=== PATIENT | male | born 1960 | race Caucasian/White ===

== ENCOUNTER 2021-12-16 12:47 | Outpatient (CLI) | payer BC, SELFPAY | END 2021-12-16 12:48 | disposition home or self-care (01) | LOC: ANHAUDIO 12:48 | PROVIDERS: PCP Family Medicine; Visit Provider Otolaryngology | DX: H91.90 Unspecified hearing loss, unspecified ear (principal) | CPT/HCPCS: 92557; 92567 ==

== ENCOUNTER 2022-03-17 10:50 | Outpatient (RCR) | payer BC, SELFPAY | END 2022-03-17 23:59 | disposition home or self-care (01) | LOC: ANHAUDIO 10:50 | PROVIDERS: PCP Family Medicine; Referring Provider Family Medicine; Visit Provider Family Medicine | DX: Z46.1 Encounter for fitting and adjustment of hearing aid (principal) | CPT/HCPCS: 99199 ==

== ENCOUNTER → 2022-08-12 12:58 | Outpatient (CLI) | payer BC, SELFPAY ==
--- NOTE | ~2022-08-12 | XR_ITS ---
XR ribs RT 2V w CXR 2V DATE: 08/12/2022 13:30 INDICATION: Chest pain. Pleural pain. TECHNIQUE: Upright PA and lateral chest. 4 views of the right ribs. COMPARISON: None FINDINGS: There is moderate right pleural effusion and right lower lung atelectasis. Posterolateral m inimally displaced left posterolateral seventh, eighth and ninth rib fractures are noted. Probable no ndisplaced posterolateral left sixth rib fracture. No pneumothorax is detected. Normal heart size. The left lung is clear. No left pleural effusion or pneumothorax. IMPRESSION: Recent posterolateral left seventh, eighth and ninth and possible sixth rib fractures wit h moderately large right pleural effusion and associated compressive right lower lung atelectasis Reviewed, dictated and finalized at location B. BUILDER IMPRESSION: Recent posterolateral left seventh, eighth and ninth and possible s ixth rib fractures with moderately large right pleural effusion and associated compressive right lower lung atelectasis
== END ==
PROVIDERS: PCP Family Medicine; Visit Provider Family Medicine
DX: R07.81 Pleurodynia (principal)
CPT/HCPCS: 71046; 71100

== ENCOUNTER 2022-08-19 15:00 | Outpatient (RCR) | payer BC, SELFPAY | END 2022-08-19 23:59 | disposition home or self-care (01) | LOC: ANHAUDIO 15:00 | PROVIDERS: PCP Family Medicine; Visit Provider Family Medicine | DX: Z46.1 Encounter for fitting and adjustment of hearing aid (principal) | CPT/HCPCS: 99199; V5160; V5261 ==

== ENCOUNTER → 2022-08-21 08:47 | Outpatient (CLI) | payer BC, SELFPAY ==
--- NOTE | ~2022-08-21 | CT_ITS ---
EXAMINATION: CT diagnostic chest w con DATE: 08/21/2022 09:29 INDICATION: Pleural effusion, not elsewhere classified TECHNIQUE: Computed tomography (CT) of the chest was performed with 100 mL Omnipaque-350 intravenous contrast. Additional 3D reconstructions utilizing coronal maximum intensity projection (MIP) were per formed. Automated exposure control and iterative reconstruction technique were employed. The dose-gigi gth product was 351.21 mGy-cm. COMPARISON: None FINDINGS: Moderate sized posterior layering right pleural effusion with dependent compressive atelectasis in th e right lower lobe and to a lesser degree the right upper and middle lobes. The noncollapsed portions of the lungs are clear with no evident pneumonia or pulmonary edema. No pneumothorax or left-sided p leural effusion. Heart size is normal. Atherosclerotic coronary artery calcific location. Although no t performed as a dedicated pulmonary embolism protocol there is good opacification of the pulmonary a rteries including diagnostic quality study which demonstrates no pulmonary embolism. Thoracic aorta i s normal in caliber with no dissection. No pathologically enlarged thoracic lymphadenopathy. Small sl iding-type hiatal hernia. Mild thoracic kyphosis with chronic compression fractures with 40% anterior vertebral body height loss at T7 and T8 and 20% anterior vertebral body height loss at T11 and T12. Likely subacute segmental fractures of the 6-10th ribs which remain ununited with small amount of adia damon formation. This includes a nondisplaced fractures near the costovertebral articulations mild kristen tional fractures more laterally along the posterior ribs, minimally displaced at the sixth rib and wi th up to one shaft widths displacement at the eighth and ninth ribs were the more depressed fracture margin projects into the pleural space. There is also a 2.4 x 1.2 cm ovoid lobulated subpleural fat p rojecting to the pleural space at the level of the 10th rib fracture. IMPRESSION: 1. Multiple subacute segmental posterior right rib fractures which remain ununited with early product iris changes of healing. 2. Moderate-sized right pleural effusion with associated dependent compressive atelectasis. This may be related to the prior trauma with a couple of the fracture margins of a small lobulated subpleural fat projecting into the pleural space. 3. No pulmonary embolism, pneumonia, pulmonary edema, pneumothorax or other acute lung disease. Reviewed, dictated and finalized at location A. E SERVICE TECHNICIAN IMPRESSION: 1. Multiple subacute segmental posterior right rib fractures which remain ununi aleks with early productive changes of healing. 2. Moderate-sized right pleural effusion with associated dependent compressive atelectasis. This may be related to the prior trauma with a couple of the fract ure margins of a small lobulated subpleural fat projecting into the pleural spa ce. 3. No pulmonary embolism, pneumonia, pulmonary edema, pneumothorax or other acu te lung disease.
[2022-08-21 09:15] LABS: Estimated Glomerular Filt Rate > 60
== END ==
PROVIDERS: PCP Family Medicine; Visit Provider Family Medicine
DX: R07.9 Chest pain, unspecified (principal); J90 Pleural effusion, not elsewhere classified
CPT/HCPCS: 71260; Q9967

== ENCOUNTER → 2022-10-19 14:45 | Outpatient (CLI) | payer BC, SELFPAY ==
--- NOTE | ~2022-10-19 | CT_ITS ---
EXAMINATION: CT brain wo con DATE: 10/19/2022 15:26 INDICATION: Headache, unspecified . TECHNIQUE: Computed tomography (CT) of the head was performed without intravenous contrast. The mA wa s adjusted according to patient size. Iterative reconstruction technique was employed. The dose-lengt h product was 599.57 mGy-cm. COMPARISON: None. FINDINGS: No acute intracranial hemorrhage or extra-axial fluid collection. No hydrocephalus, mass, or herniation. No acute ischemic infarct. Unremarkable dural venous sinus attenuation. No acute osseous abnormality. Left inferior maxillary and mild ethmoid mucosal thickening, the remaining aerated spaces are clear. Mild atrophy and chronic white matter change. Encephalomalacia in the left posterior frontal lobe, le ft parietal lobe, external capsule, left thalamus, and right cerebellum. Ex vacuo dilation of the lef t lateral ventricle. Atherosclerotic intracranial calcification. IMPRESSION: No acute intracranial process. 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 Reviewed, dictated and finalized at location K. R TAXI OPERATOR IMPRESSION: No acute intracranial process. Old left MCA territory and focal right cerebella r infarcts.
== END ==
PROVIDERS: PCP Family Medicine; Visit Provider Family Medicine
DX: R51.9 Headache, unspecified (principal); H53.9 Unspecified visual disturbance; I69.359 Hemiplegia and hemiparesis following cerebral infarction affecting unspecified side
CPT/HCPCS: 70450

== ENCOUNTER 2024-11-23 02:03 | Day surgery (SDC) | payer BC, MEDICARE, SELFPAY ==
[2024-11-17 09:02] VITALS: BMI 23.8
--- NOTE | 2024-11-17 09:15 | SUR.PREOP ---
Spoke with patient and regarding medication Plavix. Patient and verbalizes understanding that the last dose is to be taken on and the Endoscopist will instruct them when to restart after the procedure.
--- OUTSIDE RECORDS SUMMARY | 2024-11-23 02:05 | XMS_ITS | Referral Summary ---
Author Organization [facility] Address [address] [place] [address] Care Team Providers Care Commercial Accountant Name Role Phone Sonja Beltrán MD Primary Care Provider [phone] Encounters Date Type Department Care Team Description 09/27/2024 2:30 PM LEATHER LACER Office Visit [facility] 6th Floor, [address] [facility] [place] [address] Melvin Romero, OD Chronic angle-closure glaucoma of both eyes, moderate stage (Primary Dx) 09/27/2024 2:10 PM LEATHER LACER Imaging Exam [facility] [address] [address] Primary open angle glaucoma (POAG) of both eyes, severe stage (Primary Dx) from Last 3 Months Allergies No known active allergies Medications aspirin 81 mg tabletIndications:Ce rebral Thromboembolism Prevention Take 1 tablet (81 mg total) by mouth every morning Active methotrexate 2.5 mg tabletIndications:Rh eumatoid Arthritis Take 6 tablets (15 mg total) by mouth every 7 days Wednesday Active baclofen (LIORESAL) 10 mg tabletIndications:Mu scle Spasticity of Spinal Origin Take 1 tablet (10 mg total) by mouth 2 (two) times a day Active atorvastatin (LIPITOR) 80 mg tabletIndications:Ce rebral Thromboembolism Prevention Take 1 tablet (80 mg total) by mouth every morning Active sertraline (ZOLOFT) 50 mg tabletIndications:An xiety with Depression Take 1 tablet (50 mg total) by mouth every morning Active ergocalciferol (VITAMIN D) 50,000 unit capsuleIndications:V itamin D Deficiency Take 1 capsule (50,000 Units total) by mouth once a week Wednesday 1 Active tamsulosin (FLOMAX) 0.4 mg extended release capsuleIndications:b enign prostatic hyperplasia with lower urinary tract sx Take 1 capsule (0.4 mg total) by mouth every morning 2 Active folic acid (FOLVITE) 1 mg tabletIndications:javier pplement Take 1 tablet (1 mg total) by mouth every morning Active acetaminophen (TYLENOL) 500 mg tablet Take 2 tablets (1,000 mg total) by mouth every 6 (six) hours as needed for pain Active finasteride (PROSCAR) 5 mg tablet 4 Active clopidogreL (PLAVIX) 75 mg tablet TAKE 1 TABLET DAILY 90 tablet 3 4 Active Active Problems Problem Noted Date Diagnosed Date Pseudophakia of both eyes 05/03/2024 Assessment & Plan (05/03/2024 10:15 AM CDT): Happy with uncorrected vision Bradycardia 12/17/2023 Cerebrovascular accident (CVA) 12/17/2023 Carotid artery disease 12/17/2023 Open-angle glaucoma of left eye, moderate stage 11/30/2023 Postop check 10/06/2023 Assessment & Plan (12/29/2023 10:07 AM CDT): POM1 post phaco/goniotomy OS - great intraocular pressure (IOP) off drops RTC 4 months Virk visual field (HVF) 24-2 Assessment & Plan (12/08/2023 10:21 AM CDT): POW1 post phaco/goniotomy OS - stop moxi - prednisolone 4-3-2-1 - Holding IOP lowering medications - Post op instructions reviewed Return: 1 month for post op exam. Sooner if questions or concerns. Assessment & Plan (12/01/2023 9:19 AM CDT): POD1 post phaco/goniotomy OS - moxifloxacin 4 times daily - prednisolone 4 times daily - Holding IOP lowering medications - Post op instructions reviewed Return: 1 week for post op exam. Sooner if questions or concerns. Assessment & Plan (11/03/2023 12:03 PM CDT): POM1 post phaco/GSL right eye (OD) -Doing very well today -Intraocular pressure (IOP) 13.5 on combigan and off steroids -Still with a light anterior chamber (AC) reaction but is mostly pigment, will monitor for now Discussed sx of rebound inflammation -Plan for cataract extraction (CE)/intraocular lens (IOL)/KDB left eye (OS) Subtenon's block Target plano Assessment & Plan (10/13/2023 11:05 AM LEATHER LACER): POW1 post phaco/GSL right eye (OD) Epithelial defect resolved, noted D folds, PEE - DC Moxi and juan - prednisolone taper - Hold Latanoprost and Dorz, continue combigan - Post op instructions reviewed Return: 1 month for exam and refraction. Sooner if questions or concerns. Assessment & Plan (10/06/2023 2:56 PM LEATHER LACER): POD1 post phaco/GSL OD - moxifloxacin 4 times daily - prednisolone 4 times daily - Continue IOP lowering medications - Post op instructions reviewed Epithelial defect noted- juan tid Return: 1 week for post op exam. Sooner if questions or concerns. Chronic angle-closure glaucoma of both eyes, mod erate stage 08/25/2023 Assessment & Plan (05/03/2024 10:12 AM CDT): - Tmax: 38/21 Thick CCT Status post (s/p) cataract extraction (CE)/intraocular lens (IOL) both eyes (OU) Angles with more opening, but areas of peripheral anterior synechia (PAS) both eyes (OU) Intraocular pressure (IOP) excellent (squeezing with applanation) off meds - HVF more reliable today-inferior and superior arcuate defects OU (OD > OS) CPM F/U [address] Romero- OCT, DFE Assessment & Plan (08/25/2023 9:54 PM LEATHER LACER): Referred by Anthony Foley DO for POAG. - Glaucoma diagnosed 3-4 months ago - Family hx: none - Prior tx: gtts only - Tmax: 38 - Drop intolerances: none Thick CCT - Gonio with narrow angles and lens rise - HVF with high fixation losses, high false negatives; severe inferior and superior arcuate defects OU (OD > OS) - OCT with polar thinning OU Chronic angle-closure glaucoma OU (OD > OS)- marked lens rise visually significant cataracts, recommend CE/IOL w/ goniosynechealysis, possible goniotomy; first OD, then OS. Encounter for surgical after care following surgery on the circulatory system 06/12/2019 Resolved Problems Problem Noted Date Diagnosed Date Resolved Date Nuclear sclerosis, left 08/25/202304/23 Assessment & Plan (11/03/2023 12:03 PM CDT): Visually significant Plan for same surgery We discussed the risks, benefits, and alternatives, and the patient chooses to proceed with surgery. We discussed the target and the patient elects target plano/distance Phaco/IOL/GSL/KDB left eye. MAC *might need subtenon's block for better cooperation with GSL portion* IOLM done Assessment & Plan (08/25/2023 9:55 PM LEATHER LACER): Visually significant with lens rise and angle closure Recommend cataract extraction (CE) with GSL [employer] [place] Discussed R/B/A with pt and Cont Anticoagulants with hx of CVA Noted Flomax therapy Social History Tobacco Use Types Packs/Day Years Used Date Smoking Tobacco: Former Cigarettes Q uit: 2013 Smokeless Tobacco: Never Tobacco Cessation:Counseling Given: Not Answered Comments:Started as a teen Alcohol Use Standard Drinks/Week Comments Yes 0 (1 standard drink = 0.6 oz pur e alcohol) AUDIT-C Answer Date Recorded Q1: How often do you have a drink containing alc ohol? Monthly or less 12/17/2023 Q2: How many drinks containi ng alcohol do you have on a typical day when you are drinking? 1 or 2 12/17/2023 Q3: How often do you have si x or more drinks on one occasion? Never 12/17/2023 Personal Safety Answer Date Recorded Have you ever been in or are you currently in a harmful physical or emotional relationship or is someone making you feel afraid or unsafe? Denies 11/30/2023 Sex and Gender Information Value Date Recorded Sex Assigned at Not on file Legal Sex Male 2:01 AM LEATHER LACER Gender Identity Not on file Sexual Orientation Not on file Last Filed Vital Signs Vital Sign Reading Time Taken Comments Blood Pressure 95/57 04/17/2024 10:18 AM CDT Pulse 50 04/17/2024 10:18 AM CDT Temperature 36.1 C (97 F) 11/30/2023 8:56 AM CDT Respiratory Rate 16 11/30/2023 9:10 AM CDT Oxygen Saturation 96% 04/17/2024 10:18 AM CDT Inhaled Oxygen Concentration - - Weight 75.8 kg (167 lb) 04/17/2024 10:18 AM CDT Height 175.3 cm (5' 9 ) 04/17/2024 10:18 AM CDT Body Mass Index 24.66 04/17/2024 10:18 AM CDT Plan of Treatment Not on file Medical Devices Implanted Type Area Structured Cabling Technician Device Identifier Shelf Expiration Date Model / Serial / Lot [employer] Lens Iol Tecnis Smplcty 1-Pc Clr Tate 22.0 Diopter [id number] - [id number] - [id number] Implanted:Qty: 1 on 10/05/2023 by Carin Stone MD at [facility] Lens Right: Lens [employer] [id number] 04/13/2026 [id number] / [id number] / 0 [employer] Lens Iol Tecnis Smplcty 1-Pc Clr Tate 22.5 Diopter [id number] - [id number] - [id number] Implanted:Qty: 1 on 11/30/2023 by Buzz Guevara II, MD at [facility] Lens Left: Eye [employer] [id number] 03/30/2026 [id number] / [id number] / Procedures Procedure Name Priority Date/Time Associated Diagnosis Comments OCT, OPTIC NERVE - OU - BOTH EYES Routine 09/27/2024 2:07 PM LEATHER LACER Primary open angle glaucoma (POAG) of both eyes, severe stage CT ABDOMEN PELVIS W CONTRAST Routine 03/12/2018 12:00 AM CDT from Last 3 Months or Most Recently Relevant to Health Maintenance Results * OCT, Optic Nerve - OU - Both Eyes (09/27/2024 2:07 PM LEATHER LACER) RNFL OS 94 micrometers CONTINUUM RNFL OD 56 micrometers CONTINUUM Anatomical Region Laterality Modality Head Other Narrative 09/27/2024 2:07 PM LEATHER LACER Right Eye Reliability was good. Temporal progression was stable. Temporal thickness was normal. Superior progression was stable. Superior thickness was showing abnormal thinning. Nasal progression was worsened. Nasal thickness was normal. Inferior progression was worsened. Inferior thickness was showing abnormal thinning. Average RNFL thickness 56 micrometers. Left Eye Reliability was good. Temporal progression was worsened. Temporal thickness was normal. Superior progression was stable. Superior thickness was normal. Nasal progression was stable. Nasal thickness was normal. Inferior progression was stable. Inferior thickness was normal. Average RNFL thickness 94 micrometers. Notes Right eye (OD) mild thinner inf and nasal Left eye (OS) mild temp thinning us Melvin Romero OD OPHTH TOMOGRAPHY Final Resul t * CT Abdomen Pelvis W Contrast (03/12/2018 12:00 AM CDT) Anatomical Region Laterality Modality Body N/A Computed Tomogra phy 03/12/2018 Impressions 03/12/2018 12:33 PM CDT 1.Very mild right hydronephrosis but no definite radiopaque ureteral calculi. Mild increased density in the right perinephric fat could relate to inflammation or obstruction. Renal enhancement is symmetric bilaterally. 2.4 cm right lower pole renal cyst and 3 mm nonobstructing right lower pole calculus. 3.No dilated bowel. No free intraperitoneal fluid or free intraperitoneal air. Appendix within normal limits. 4.Atherosclerotic changes but no evidence of abdominal aortic aneurysm. 5.Bilateral L5 spondylolysis with minimal grade 1 spondylolisthesis. 6.Small hiatal hernia. THIS IS AN ELECTRONICALLY VERIFIED FINAL REPORT 03/12/2018 12:30 PM - Electronically signed by Victorino Liang M.D. RB: KARLI Report ID: [id number] Reading Location: [id number] [EOD] Narrative 03/12/2018 12:33 PM CDT EXAM DESCRIPTION: CT Abd/Pelvis W IV Contrast REASON FOR STUDY: Right upper quadrant/flank pain beginning earlier this morning. TECHNIQUE: CT scan of the abdomen and pelvis performed with intravenous and without oral contrast using helical scanning technique with dynamic intravenous contrast injection. Reconstructed coronal and sagittal MPR images reviewed. All images stored on PACS. Automated exposure control was used as a dose optimization technique for this examination. CONTRAST TYPE/DOSE: 100 mL of Optiray 350 contrast were intravenously injected at the left forearm. COMPARISON: CT abdomen and pelvis without contrast from earlier today. FINDINGS: ABDOMEN/PELVIS: LOWER CHEST: Minimal bibasilar atelectasis and/or scarring. No significant pulmonary abnormalities. No effusion. LIVER: Normal size. No identified cystic or solid masses. GALLBLADDER: No stones identified. No wall thickening or inflammatory changes. BILE DUCTS: No intrahepatic or extrahepatic ductal dilatation. SPLEEN: Normal size. No focal lesions. PANCREAS: No identified cystic or solid masses. No significant calcifications. No adjacent inflammation or peripancreatic fluid collections. Pancreatic duct not dilated. ADRENALS: Normal. KIDNEYS/URINARY TRACT: 4 cm well-circumscribed low-density right lower pole renal mass is thought to be a cyst. A few additional tiny hypodensities in both kidneys are also probably cysts. No other renal masses. 3 mm nonobstructing calculus lower right kidney. No other definite radiopaque renal or ureteral calculi. Very mild right hydronephrosis. No left hydronephrosis. Symmetric enhancement. Mild increased density in the right perinephric fat could relate to inflammation or obstruction. Small bilateral renal artery calcifications. Urinary bladder is unremarkable. GI: No dilated bowel loops. No obvious wall thickening. Normal appendix. No significant diverticular disease. PERITONEUM: No ascites or free air. RETROPERITONEUM: No mass or adenopathy. REPRODUCTIVE: No significant abnormality. VASCULATURE: Atherosclerotic disease in the aorta, aortic branches, iliacs, and coronary arteries. No abdominal aortic aneurysm. MUSCULOSKELETAL: No acute findings. Moderate multilevel lower thoracic and mild multilevel lumbar spondylosis. Bilateral L5 spondylolysis with minimal grade 1 spondylolisthesis. OTHER: Small hiatal hernia. Procedure Note Provider, MD Liya - 01/08/2021 EXAM DESCRIPTION: CT Abd/Pelvis W IV Contrast REASON FOR STUDY: Right upper quadrant/flank pain beginning earlier this morning. TECHNIQUE: CT scan of the abdomen and pelvis performed with intravenousand without oral contrast using helical scanning technique with dynamic intravenous contrast injection. Reconstructed coronal and sagittal MPRimages reviewed. All images stored on PACS. Automated exposure control was used as a dose optimization technique forthis examination. CONTRAST TYPE/DOSE: 100 mL of Optiray 350 contrast were intravenously injected at the left forearm. COMPARISON: CT abdomen and pelvis without contrast from earlier today. FINDINGS: ABDOMEN/PELVIS: LOWER CHEST: Minimal bibasilar atelectasis and/or scarring. Nosignificant pulmonary abnormalities. No effusion. LIVER: Normal size. No identified cystic or solid masses. GALLBLADDER: No stones identified. No wall thickening or inflammatorychanges. BILE DUCTS: No intrahepatic or extrahepatic ductal dilatation. SPLEEN: Normal size. No focal lesions. PANCREAS: No identified cystic or solid masses. No significantcalcifications. No adjacent inflammation or peripancreatic fluid collections. Pancreaticduct not dilated. ADRENALS: Normal. KIDNEYS/URINARY TRACT: 4 cm well-circumscribed low-density right lowerpole renal mass is thought to be a cyst. A few additional tiny hypodensitiesin both kidneys are also probably cysts. No other renal masses. 3 mm nonobstructing calculus lower right kidney. No other definite radiopaque renal or ureteral calculi. Very mild right hydronephrosis. No left hydronephrosis. Symmetric enhancement. Mild increased density in theright perinephric fat could relate to inflammation or obstruction. Smallbilateral renal artery calcifications. Urinary bladder is unremarkable. GI: No dilated bowel loops. No obvious wall thickening. Normal appendix.No significant diverticular disease. PERITONEUM: No ascites or free air. RETROPERITONEUM: No mass or adenopathy. REPRODUCTIVE: No significant abnormality. VASCULATURE: Atherosclerotic disease in the aorta, aortic branches,iliacs, and coronary arteries. No abdominal aortic aneurysm. MUSCULOSKELETAL: No acute findings. Moderate multilevel lower thoracicand mild multilevel lumbar spondylosis. Bilateral L5 spondylolysis withminimal grade 1 spondylolisthesis. OTHER: Small hiatal hernia. IMPRESSION: 1.Very mild right hydronephrosis but no definite radiopaque ureteralcalculi. Mild increased density in the right perinephric fat could relate to inflammation or obstruction. Renal enhancement is symmetric bilaterally. 2.4 cm right lower pole renal cyst and 3 mm nonobstructing right lowerpole calculus. 3.No dilated bowel. No free intraperitoneal fluid or free intraperitoneal air. Appendix within normal limits. 4.Atherosclerotic changes but no evidence of abdominal aortic aneurysm. 5.Bilateral L5 spondylolysis with minimal grade 1 spondylolisthesis. 6.Small hiatal hernia. THIS IS AN ELECTRONICALLY VERIFIED FINAL REPORT 03/12/2018 12:30 PM - Electronically signed by Victorino Liang M.D. RB: KARLI Report ID: [id number] Reading Location: [place] [id number] [EOD] Roberto Carlos Connolly MD IMG CT PROCEDURES Final R esult from Last 3 Months or Most Recently Relevant to Health Maintenance Insurance [employer] ACCESS ANTHEM ACCESS Care Teams Commercial Accountant Relationship Specialty Start Date End Date Sonja Beltrán MD PCP - General Family Medicine 12/14/23
--- OUTSIDE RECORDS SUMMARY | 2024-11-23 02:05 | XMS_ITS | Clinical Summary ---
Author Organization [facility] Address [address] [place] [address] Care Team Providers Care Commission Clerk Name Role Phone Sonja Beltrán MD Primary Care Provider [phone] Allergies No known active allergies Medications baclofen (LIORESAL) 10 MG tablet 2022 Active sertraline (ZOLOFT) 100 MG tablet Take 100 mg by mouth daily. Active tamsulosin (FLOMAX) 0.4 MG Cap Take 0.4 mg by mouth daily. Active methotrexate (TREXALL) 5 MG tablet Take 5 mg by mouth. Active atorvastatin (LIPITOR) 10 MG tablet Take 10 mg by mouth nightly at bedtime. Active clopidogrel (PLAVIX) 75 MG tablet Take 75 mg by mouth daily. Active methylPREDNISol one, JENNIFER, (MEDROL DOSEPAK) 4 MG tablet Take 1 tablet (4 mg total) by mouth daily. 6 TABLETS ON DAY ONE, 5 TABLETS DAY TWO, 4 TABLETS DAY THREE, 3 TABLETS DAY FOUR, 2 TABLETS DAY FIVE, AND 1 TABLET DAY SIX 1 each 06/02/2022 Active dextromethorpha n-guaiFENesin ER (MUCINEX DM) 30-600 MG TABLET SR 12 HR 12 hr tablet Take 1 tablet by mouth every 12 (twelve) hours as needed. 28 tablet 06/02/2022 Active senna-docusate (SENOKOT-S) 8.6-50 MG tablet Take 1 tablet by mouth daily. 60 tablet 06/02/2022 Active Family History Medical History Relation Comments Heart Disease Father Stroke Mother Relation Status Comments Father Mother Social History Tobacco Use Types Packs/Day Years Used Date Smoking Tobacco: Never Smokeless Tobacco: Never Alcohol Use Standard Drinks/Week Comments Never 0 (1 standard drink = 0.6 oz pur e alcohol) Sex and Gender Information Value Date Recorded Sex Assigned at Not on file Legal Sex Male 6:23 PM CDT Gender Identity Not on file Sexual Orientation Not on file Last Filed Vital Signs Vital Sign Reading Time Taken Comments Blood Pressure 109/66 06/02/2022 6:37 PM CDT Pulse 72 06/02/2022 6:37 PM CDT Temperature 36.7 C (98 F) 06/02/2022 6:37 PM CDT Respiratory Rate 18 06/02/2022 6:37 PM CDT Oxygen Saturation 97% 06/02/2022 6:37 PM CDT Inhaled Oxygen Concentration - - Weight 85.7 kg (189 lb) 06/02/2022 6:37 PM CDT Height 175.3 cm (5' 9 ) 06/02/2022 6:37 PM CDT Body Mass Index 27.91 06/02/2022 6:37 PM CDT Plan of Treatment Health Maintenance Due Date Last Done Comments Colorectal Cancer Screening Colonoscopy (10 Years) 1959 Hepatitis C 1977 Zoster Vaccines (1 of 2) 2009 COVID-19 Vaccine ( - 2023-2 5 season) 2024 Pneumococcal Vaccine: 65+ Ye ars (2 of 2 - PCV) 2024 08/31/2018 DTaP, Tdap and Td Vaccines ( 2 - Td or Tdap) 04/14/2032 04/14/2022 RSV Immunization or 60+ Years (1 - 1-dose 75+ series) 2034 Pneumococcal Vaccine: Pediat rics (0 to 5 Years) and At-Risk Patients (6 to 64 Years) Aged Out 08/31/2018 No longer eligi ble based on patient's age to complete this topic Meningococcal B Vaccine Aged Out No l onger eligible based on patient's age to complete this topic Meningococcal Vaccine Aged Out No alina doris eligible based on patient's age to complete this topic RSV Immunizations Under 20 Months Aged Out No longer eligible based on patient's age to complete this topic Insurance [facility] Care Teams Commission Clerk Relationship Specialty Start Date End Date Sonja Beltrán MD [address] [place] [address] PCP - General FAMILY PRACTICE 06/02/22
--- OUTSIDE RECORDS SUMMARY | 2024-11-23 02:05 | XMS_ITS | Clinical Summary ---
Author Organization [facility] Address [address] [place] [address] Care Team Providers Care General Partner Name Role Phone Sonja Beltrán MD Primary Care Provider [phone] Allergies No known active allergies Medications aspirin [...] plano Assessment & Plan (10/13/2023 11:05 AM FUEL QUALITY TECH): POW1 post phaco/GSL right eye (OD) Epithelial defect resolved, noted D folds, PEE - DC Moxi and juan - prednisolone taper - Hold Latanoprost and Dorz, continue combigan - Post op instructions reviewed Return: 1 month for exam and refraction. Sooner if questions or concerns. Assessment & Plan (10/06/2023 2:56 PM FUEL QUALITY TECH): POD1 post phaco/GSL OD - moxifloxacin 4 times daily - prednisolone 4 times daily - Continue IOP lowering medications - Post op instructions reviewed Epithelial defect noted- juan tid Return: 1 week for post op exam. Sooner if questions or concerns. Chronic angle-closure glaucoma of both eyes, mod erate stage 08/25/2023 Assessment & Plan (05/03/2024 10:12 AM CDT): - Tmax: 38/ Thick CCT Status post (s/p) cataract extraction [...] DFE Assessment & Plan (08/25/2023 9:54 PM FUEL QUALITY TECH): Referred by Anthony Foley DO for POAG. - Glaucoma diagnosed 3-4 months ago - Family hx: none - Prior tx: gtts only - Tmax: 38/21 - Drop intolerances: none Thick CCT - [...] done Assessment & Plan (08/25/2023 9:55 PM FUEL QUALITY TECH): Visually significant with lens rise and angle closure Recommend cataract extraction (CE) with GSL [facility] Discussed R/B/A with pt and Cont Anticoagulants with hx of CVA Noted Flomax therapy Encounters Date Type Department Care Team Description 09/27/2024 2:30 PM FUEL QUALITY TECH Office Visit [facility] [address], [address] [facility] [place] [place] [address] Melvin Romero, OD Chronic angle-closure glaucoma of both eyes, moderate stage (Primary Dx) 09/27/2024 2:10 PM FUEL QUALITY TECH Imaging Exam [facility] [facility] [address] [place] [address] Primary open angle glaucoma (POAG) of both eyes, severe stage (Primary Dx) from Last 3 Months Surgical History Surgery Date Site/Laterality Comments CAROTID ENARTERECTOMYY 05/03/2001 Left CAROTID STENT 12/25/2013 Left left carotid artery angioplasty & stenting with 8mm Wallstent and filter wire HERNIA REPAIR x2 CATARACT EXTRACTION 10/05/2023 Right Medical History Medical History Date Comments Stroke (HCC) Family History Medical History Relation Name Comments Emphysema Father Family history of emphysema - (Added by TW Conv) Heart failure Mother Family history of congestive heart failure - (Added by TW Conv) Relation Name Status Comments Father Mother Social History Tobacco Use Types Packs/Day Years Used Date Smoking Tobacco: Former Cigarettes Q uit: 2014 Smokeless Tobacco: Never Tobacco Cessation:Counseling Given: Not [...] on file Legal Sex Male 2:01 AM FUEL QUALITY TECH Gender Identity Not on file Sexual Orientation Not on file Obstetrics History Last Filed Vital Signs Vital Sign Reading [...] 04/17/2024 10:18 AM CDT Plan of Treatment Health Maintenance Due Date Last Done Comments Colon Cancer Screening-Colonoscopy 1959 Depression Screening 1959 Hepatitis C Screening 1959 Prostate Cancer Screening-PSA 1959 DTaP/Tdap/Td Vaccine (1 - Tdap) 1970 Hepatitis B Screening 1977 Zoster Vaccine (1 of 2) 1978 Pneumococcal vaccine 65+ (2 of 2 - PCV) 08/31/2019 0 08/31/2018 Influenza Vaccine (#1) 2024 06/01/2018 Abdominal Aortic Aneurysm (AAA) Screen 2024, 03/12/2018 Well Visit 65+ 2024 Fall Risk Assessment 11/29/2024 11/30/2023 Medical Devices Implanted Type Area Curriculum Assistant Device Identifier Shelf Expiration Date Model / Serial / Lot [employer] Lens Iol Tecnis Smplcty 1-Pc Clr [place] 22.0 Diopter [id number] - [id number] - [id number] Implanted:Qty: 1 on 10/05/2023 by Carin Stone MD at [facility] Lens Right: Lens [employer] [id number] 04/13/2026 [id number] / [id number] / 0 [employer] Lens Iol Tecnis Smplcty 1-Pc Clr [place] 22.5 Diopter [id number] - [id number] - [id number] Implanted:Qty: 1 on 11/30/2023 by Buzz Guevara II, MD at [facility] Lens Left: Eye [employer] [id number] 03/30/2026 [id number] / [id number] / Procedures Procedure Name Priority Date/Time Associated Diagnosis Comments OCT, OPTIC NERVE - OU - BOTH EYES Routine 09/27/2024 2:07 PM FUEL QUALITY TECH Primary open angle glaucoma (POAG) of both eyes, severe stage CT ABDOMEN PELVIS W CONTRAST Routine 03/12/2018 12:00 AM CDT from Last 3 Months or Most Recently Relevant to Health Maintenance Results * OCT, Optic Nerve - OU - Both Eyes (09/27/2024 2:07 PM FUEL QUALITY TECH) RNFL OS 94 micrometers CONTINUUM RNFL OD 56 micrometers CONTINUUM Anatomical Region Laterality Modality Head Other Narrative 09/27/2024 2:07 PM FUEL QUALITY TECH Right Eye Reliability was good. Temporal progression [...] Victorino Liang M.D. RB: KARLI Report ID: [id number] Reading Location: [id number] [EOD] Narrative 03/12/2018 12:33 PM CDT EXAM [...] Victorino Liang M.D. RB: KARLI Report ID: [id number] Reading Location: [id number] [EOD] Roberto Carlos Connolly MD IMG CT PROCEDURES Final R esult from Last 3 Months or Most Recently Relevant to Health Maintenance Insurance [employer] ACCESS [employer] ACCESS Care Teams General Partner Relationship Specialty Start Date End Date Sonja Beltrán MD PCP - General Family Medicine 12/14/23
--- OUTSIDE RECORDS SUMMARY | 2024-11-23 02:06 | XMS_ITS | Encounter Summary ---
Author Organization [facility] Address [address] [place] [address] Phone Care Team Providers Care Bread Wrapping Machine Feeder Name Role Phone Sonja Beltrán MD Primary Care Provider [phone] Sonja Beltrán MD Primary Care Provider [phone] Encounter Details Date Type Department Care Team (Latest Contact Info) Description 06/17/2017 Orders Only [facility] CONVERSION Scanning, Provider Social History Tobacco Use Types Packs/Day Years Used Date Smoking Tobacco: Former Sex and Gender Information Value Date Recorded Sex Assigned at Not on file Legal Sex Male 2:01 AM LANDSCAPE MANAGEMENT TECHNICIAN Gender Identity Not on file Sexual Orientation Not on file documented as of this encounter Plan of Treatment Not on file documented as of this encounter Procedures Procedure Name Priority Date/Time Associated Diagnosis Comments VASCULAR LABORATORY REPORT 06/17/2017 12:11 PM CDT documented in this encounter Results * VASCULAR LABORATORY REPORT (06/17/2017 12:11 PM CDT) Anatomical Region Laterality Modality Ultrasound us Provider Scanning CV VASCULAR PROCEDURES Final R esult documented in this encounter Visit Diagnoses Not on filedocumented in this encounter Additional Health Concerns Infection Onset Date Last Indicated Resolved Time COVID: Suspected 09/11/2022 09/11/2022 09/11/2022 10:01 PM LANDSCAPE MANAGEMENT TECHNICIAN documented as of this encounter Care Teams Bread Wrapping Machine Feeder Relationship Specialty Start Date End Date Sonja Beltrán MD PCP - General 06/16/17 12/13/23 Sonja Beltrán MD PCP - General Family Medicine 12/14/23 documented as of this encounter
[2024-11-23 09:03] VITALS: BP 98/65; PULSE 55; RESP 16; TEMP 36.6; O2SAT 94
[2024-11-23] MEDS: LACTATED RINGERS 1,000 ML 150 ML IV CONT (09:09)
--- NOTE | 2024-11-23 09:31 | WPDANESEPPF ---
Anes - Initial Pre Proc Eval Procedure: Operation Date: 11/23/24 10:00 Proposed Procedures p Colonoscopy - Yemi Galindo MD Date/Time: 11/23/24 09:31 Surgeon: Yemi Galindo MD Pre Op Diagnosis: fecal abnormalities Patient Data Age: 64 Gender: M Height: 1.75 m Weight: 72 kg Last Vital Signs Temp 97.8 F 11/23/24 09:03 Pulse 55 L 11/23/24 09:03 Resp 16 11/23/24 09:03 BP 98/65 L 11/23/24 09:03 Pulse Ox 94 11/23/24 09:03 O2 Del Method Room Air 11/23/24 09:03 Allergies Allergy/AdvReac Type Severity Reaction Status Date / Time No Known Allergies Allergy Verified 11/23/24 09:10 Home Medications ?Medication ?Instructions ?Recorded ?Confirmed ?Type clopidogrel 75 mg tablet (Plavix) 75 mg PO DAILY 08/03/19 11/23/24 History aspirin 81 mg tablet,delayed 81 mg PO DAILY 06/18/20 11/23/24 History release (Adult Aspirin Regimen) tamsulosin 0.4 mg capsule (Flomax) 0.4 mg PO QHS #90 caps 11/30/23 11/23/24 Rx folic acid 400 mcg tablet 0.4 mg PO DAILY #90 tabs 03/16/24 11/23/24 Rx atorvastatin 80 mg tablet (Lipitor) 80 mg PO DAILY #90 tabs 07/03/24 11/23/24 Rx ergocalciferol (vitamin D2) 1,250 1,250 mcg PO WEEKLY #14 caps 08/04/24 11/23/24 Rx mcg (50,000 unit) capsule sertraline 50 mg tablet 50 mg PO DAILY #90 tabs 08/11/24 11/23/24 Rx methotrexate sodium 2.5 mg tablet See Rx Instructions .Route 08/21/24 11/23/24 Rx .COMPLEX #72 tabs finasteride 5 mg tablet 5 mg PO DAILY #90 tabs 08/25/24 11/23/24 Rx baclofen 10 mg tablet 10 mg PO BID #180 tabs 11/08/24 11/23/24 Rx Patient hx anesthesia problems: none Family hx anesthesia problems: none Results Review: All pre-operative results and documents have been reviewed as part of the pre-operative evaluation. 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 Surgical History Surgical History H/O parotidectomy H/O carotid endarterectomy Family History Family History Other Diabetes mellitus Family history of cardiovascular disease Family history of emphysema Social History Social History Smoking status: Never smoker Second hand tobacco smoke exposure: No Alcohol intake: never Substance use: never Substance use type: does not use Lack of Transportation: No Lack of Food: Never True Current Housing: I Have Housing Concerned About Future Housing: No Difficulty Paying Gas/Electric Bills: No Difficulty Paying for Meds: No Currently Unemployed: No Education: High School Diploma/GED Difficulty w/ Childcare or Family Care: No Living arrangements: with family Additional living arrangements comments: with sp Gender identity (if verbalized by the patient): Male Sexual Orientation (if Verbalized by the Patient): Straight or Heterosexual Spiritual care concerns: No Agree to blood products: Yes Anes - Eval Final PreProcedure Day of Procedure 11/23/24 09:31 Patient weight: normal Heart: regular rate and rhythm Lungs: clear to auscultation Airway: Mallampati scale class II Neurological: alert and oriented Last oral intake: >/= 8 hours ASA classification: III Emergent: no Anesthetic plan: proceed Anesthesia type and monitoring: general GIVS and standard monitoring Results Review: All pre-operative results and documents have been reviewed as part of the pre-operative evaluation. Informed Consent: The patient's anesthetic plan and its attendant risks and benefits were discussed with the patient/family/POA. Questions were solicited and answers provided to the satisfaction of the patient/family/POA.
--- NOTE | 2024-11-23 09:48 | PM.HPGS ---
History of Present Illness History of Present Illness Consent: Risks, benefits, and alternatives have been discussed and questions answered. Patient agrees to proceed with procedure. Chief complaint: colon screening Narrative: Rico Leung is a 64 year old male here for screening colonoscopy, last one 10 years ago Review of Systems Review of Systems: All systems reviewed & are unremarkable except as noted in HPI and below PMFSH Past Medical History Medical History (Updated 11/23/24 @ 09:50 by Yemi Galindo MD) Colon cancer screening Glaucoma Encounter for immunization Encounter for methotrexate monitoring Other prison (current) drug therapy Other fatigue Inguinal hernia Pulmonary embolus Allergic rhinitis CVA, old, hemiparesis Carotid artery stenosis with cerebral infarction over 8 weeks ago Mixed hyperlipidemia Recurrent major depressive disorder, 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 Surgical History Surgical History H/O parotidectomy H/O carotid endarterectomy Family History Family History Other Diabetes mellitus Family history of cardiovascular disease Family history of emphysema Social History Social History Smoking status: Never smoker Second hand tobacco smoke exposure: No Alcohol intake: never Substance use: never Substance use type: does not use Lack of Transportation: No Lack of Food: Never True Current Housing: I Have Housing Concerned About Future Housing: No Difficulty Paying Gas/Electric Bills: No Difficulty Paying for Meds: No Currently Unemployed: No Education: High School Diploma/GED Difficulty w/ Childcare or Family Care: No Living arrangements: with family Additional living arrangements comments: with sp Gender identity (if verbalized by the patient): Male Sexual Orientation (if Verbalized by the Patient): Straight or Heterosexual Spiritual care concerns: No Agree to blood products: Yes Meds Home Medications and Allergies Home Medications ?Medication ?Instructions ?Recorded ?Confirmed ?Type clopidogrel 75 mg tablet (Plavix) 75 mg PO DAILY 08/03/19 11/23/24 History aspirin 81 mg tablet,delayed 81 mg PO DAILY 06/18/20 11/23/24 History release (Adult Aspirin Regimen) tamsulosin 0.4 mg capsule (Flomax) 0.4 mg PO QHS #90 caps 11/30/23 11/23/24 Rx folic acid 400 mcg tablet 0.4 mg PO DAILY #90 tabs 03/16/24 11/23/24 Rx atorvastatin 80 mg tablet (Lipitor) 80 mg PO DAILY #90 tabs 07/03/24 11/23/24 Rx ergocalciferol (vitamin D2) 1,250 1,250 mcg PO WEEKLY #14 caps 08/04/24 11/23/24 Rx mcg (50,000 unit) capsule sertraline 50 mg tablet 50 mg PO DAILY #90 tabs 08/11/24 11/23/24 Rx methotrexate sodium 2.5 mg tablet See Rx Instructions .Route 08/21/24 11/23/24 Rx .COMPLEX #72 tabs finasteride 5 mg tablet 5 mg PO DAILY #90 tabs 08/25/24 11/23/24 Rx baclofen 10 mg tablet 10 mg PO BID #180 tabs 11/08/24 11/23/24 Rx Allergies Allergy/AdvReac Type Severity Reaction Status Date / Time No Known Allergies Allergy Verified 11/23/24 09:10 Vital Signs Vital Signs - 24 hr 11/23/24 09:03 Temperature 97.8 F Pulse Rate 55 L Respiratory Rate 16 Blood Pressure 98/65 L Pulse Oximetry 94 Oxygen Delivery Room Air Exam Const: General: comfortable and no acute distress HENMT: Face/Nose/Sinus: Normal nares present Eyes: General: appearance normal, both eyes and all related structures Neck: Neck: no JVD Resp: Auscultation: clear to auscultation bilaterally Cardio: Rate: regular rate Rhythm: regular rhythm GI: Inspection: non-distended GI Palp: Yes Soft to palpation Skin: General skin exam: normal color Neuro: Speech: normal speech Extrem: General: normal to inspection Psych: Mental Status: mental status grossly normal Assessment and Plan Assessment and plan (1) Colon cancer screening: Code(s): Z12.11 - Encounter for screening for malignant neoplasm of colon Status: Acute Assessment and Plan: colonoscopy
[2024-11-23 10:10] VITALS: BP 90/55; PULSE 49; RESP 14; O2SAT 98
[2024-11-23 10:20] VITALS: BP 101/51; PULSE 46; RESP 12; O2SAT 98
[2024-11-23 10:30] VITALS: BP 99/56; PULSE 54; RESP 15; O2SAT 100
== END 2024-11-23 10:46 | disposition home or self-care (01) ==
PROVIDERS: PCP Family Medicine; Referring Provider Student in an Organized Health Care Education/Training Program; Visit Provider Internal Medicine Gastroenterology
PROC: 0DJD8ZZ Inspection of Lower Intestinal Tract, Via Natural or Artificial Opening Endoscopic (ICD-10-PCS; CPT 45378; principal; 2024-11-23 10:00)
DX: Z12.11 Encounter for screening for malignant neoplasm of colon (principal); H40.9 Unspecified glaucoma; Z86.711 Personal history of pulmonary embolism; I69.359 Hemiplegia and hemiparesis following cerebral infarction affecting unspecified side; E78.2 Mixed hyperlipidemia; M06.9 Rheumatoid arthritis, unspecified; F32.4 Major depressive disorder, single episode, in partial remission; Z79.82 Long term (current) use of aspirin; Z79.02 Long term (current) use of antithrombotics/antiplatelets
CPT/HCPCS: 45378; J2003; J2704; J7120